=== PATIENT | female | born 2000 | race Caucasian/White ===

== ENCOUNTER 2019-06-18 15:49 | Emergency (ER) | payer BC ==
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
--- NOTE | 2019-06-18 18:31 | RAD ---
EXAM DESCRIPTION: Ankle,Left 3 Views CLINICAL HISTORY: pain sp fall COMPARISON: None FINDINGS: Three x-ray views of the left ankle were submitted. There is no acute fracture or dislocation. Bone mineralization is within normal limits. There is no radiopaque foreign body material. There is soft tissue swelling.. IMPRESSION: No acute fracture or dislocation. Soft tissue swelling. Electronically signed by: Elian Hamilton MD 06/18/2019 6:29 PM CDT
[2019-06-18 19:01] VITALS: BP 140/89; TEMP 97.9; O2SAT 98
== END 2019-06-18 18:50 | disposition home or self-care (01) ==
LOC: ER 15:49
DX: M79.672 Pain in left foot (principal); S90.32XA Contusion of left foot, initial encounter; V92.13XA Drowning and submersion due to being thrown overboard by motion of other powered watercraft, initial encounter; Y92.9 Unspecified place or not applicable

== ENCOUNTER 2019-06-22 12:38 | Emergency (ER) | payer BC ==
[2019-06-22 14:27] VITALS: O2SAT 98
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
[2019-06-22 16:20] VITALS: BP 134/78; TEMP 98.5
== END 2019-06-22 15:45 | disposition home or self-care (01) ==
LOC: ER 12:38
DX: S92.322A Displaced fracture of second metatarsal bone, left foot, initial encounter for closed fracture (principal); S92.332A Displaced fracture of third metatarsal bone, left foot, initial encounter for closed fracture; S92.212A Displaced fracture of cuboid bone of left foot, initial encounter for closed fracture; S92.232A Displaced fracture of intermediate cuneiform of left foot, initial encounter for closed fracture; X58.XXXA Exposure to other specified factors, initial encounter; Y93.19 Activity, other involving water and watercraft; Y92.9 Unspecified place or not applicable